=== PATIENT | female | born 1980 | race African-American/Black ===

== ENCOUNTER 2022-06-16 10:45 | Outpatient (CLI) | payer BC ==
[2022-06-16 11:39] LABS: BHCG - Serum Negative (NEGATIVE); Pregs Control Background? CLEAR/WHITE (CLR/WHITE); Pregs Control Bar Appear? YES (CONTROL BAR)
== END 2022-06-16 10:46 | disposition home or self-care (01) ==
LOC: CSHLAB 10:45
PROVIDERS: ATTEND Surgery
DX: Z01.812 Encounter for preprocedural laboratory examination (principal); K80.20 Calculus of gallbladder without cholecystitis without obstruction; E66.01 Morbid (severe) obesity due to excess calories; Z68.43 Body mass index [BMI] 50.0-59.9, adult
CPT/HCPCS: 84703

== ENCOUNTER 2022-06-18 07:42 | Day surgery (SDC) | payer BC ==
[2022-06-16 12:48] VITALS: BMI 54.7
[2022-06-18] MEDS ORDERED: Bupivacaine PF 0.5% 30 ML VIAL ONE (08:53)
[2022-06-18] MEDS ORDERED: CEFAZOLIN 2 GM VIAL ONE (09:03)
[2022-06-18] MEDS ORDERED: Midazolam HCl 2 mg/2 ml Vial ONE (09:10)
[2022-06-18] MEDS ORDERED: Scopolamine 1.5 mg/72 hour Patch ONE (09:10)
[2022-06-18] MEDS ORDERED: Midazolam HCl 2 mg/2 ml Vial IVP PRN (09:12)
[2022-06-18] MEDS ORDERED: Lactated Ringer's 1,000 ML IV SCH (09:15)
[2022-06-18] MEDS ORDERED: Scopolamine 1.5 mg/72 hour Patch TOP SCH (09:15)
[2022-06-18] MEDS ORDERED: PROPOFOL 20 ML ONE (09:36)
[2022-06-18] MEDS ORDERED: Fentanyl 100 MCG/2 ML VIAL ONE ×3 (09:36→11:29)
[2022-06-18] MEDS ORDERED: Rocuronium Bromide 10 MG/ML (10ML VIAL) ONE (09:36)
[2022-06-18] MEDS ORDERED: Lidocaine 2% PF 5 ML VIAL ONE (09:36)
[2022-06-18] MEDS ORDERED: EPINEPHrine 1 MG/ML AMP ONE (10:19)
[2022-06-18] MEDS ORDERED: Dexamethasone 4 mg/ml Vial ONE (10:35)
[2022-06-18] MEDS ORDERED: Ondansetron PF 4 MG/2 ML Vial ONE (10:35)
[2022-06-18] MEDS ORDERED: Glycopyrrolate 0.2 MG/ML 5 ML SYRINGE ONE (10:36)
[2022-06-18] MEDS ORDERED: PHENYLEPHRINE-NS 100 MCG/ML 10 ML SYRINGE ONE (10:46)
[2022-06-18] MEDS ORDERED: Acetaminophen 325 MG TAB PO PRN (10:57)
[2022-06-18] MEDS ORDERED: HYDROcodone/Acetaminophen 5/325 mg Tablet PO PRN (10:57)
[2022-06-18] MEDS ORDERED: Ketorolac Tromethamine 30 MG/ML VIAL ONE (11:07)
[2022-06-18] MEDS ORDERED: HYDROcodone/Acetaminophen 5/325 mg Tablet ONE (12:41)
== END 2022-06-18 13:50 | disposition home or self-care (01) ==
LOC: CSHSDC 07:42
PROVIDERS: ATTEND Surgery
PROC: 0FT44ZZ Resection of Gallbladder, Percutaneous Endoscopic Approach (ICD-10-PCS; principal; 2022-06-18)
DX: K80.10 Calculus of gallbladder with chronic cholecystitis without obstruction (principal); E66.01 Morbid (severe) obesity due to excess calories; Z68.43 Body mass index [BMI] 50.0-59.9, adult
CPT/HCPCS: 88304; C1776; J0171; J1100; J1885; J2001; J2250; J2405; J2704; J3010; S0020